=== PATIENT | female | born 1990 | race Caucasian/White ===

== ENCOUNTER → 2021-09-22 | Outpatient (CLI) | payer BC, OTHER ==
[~2021-09-22] MED LIST: ALBU90OI INH; AMOX500 PO; AZIT250 PO; Bactrim Ds Tab1 EACH PO; CEPH500 PO; CIPR500 PO; Ferrous Sulfat325 M2 PO; HYDACE5 PO; IBUP600 PO; IBUP800 PO; IRON325 MG PO; MEDR150I IM; MULVITMINE PO; ONDA4ODT MM; OXYACE5T PO; PHENA100 PO; Prednisone10 MG PO; Prednisone20 MG PO; Pyridium100 MG PO; RXALBOI INH; RXHYDACE PO; RXOXYACE PO; Triamcinolone A15 GM TOP; Verotin-Gr Cap1 EACH PO
== END | disposition home or self-care (01) ==
LOC: LAB 18:31 → LAB SHORT 18:31
DX: N39.0 Urinary tract infection, site not specified (principal)
CPT/HCPCS: 87077; 87086; 87186

== ENCOUNTER → 2022-09-12 | Outpatient (CLI) | payer BC, OTHER | END | disposition home or self-care (01) | LOC: LAB 16:42 → LAB SHORT 16:42 | DX: N39.0 Urinary tract infection, site not specified (principal) | CPT/HCPCS: 87086 ==

== ENCOUNTER 2023-03-29 06:13 | Day surgery (SDC) | payer BC, OTHER ==
[2023-03-29] VITALS (17 sets, daily range): BP systolic 102–135; BP diastolic 66–93
[~2023-03-29] VITALS: Ht 162.6 cm; Wt 74.3 kg
[2023-03-29] MEDS ORDERED: Lactated Ringer's 1,000 ML IV SCH ×2 (06:30→11:05)
[2023-03-29] MEDS ORDERED: CeFAZolin Sodium 2,000 MG in NS 50 ML IV SCH ×2 (06:30→14:15)
[2023-03-29] MEDS ORDERED: DHEA 10 MG TAB1 EACH PO (06:55)
[2023-03-29] MEDS ORDERED: LEVSOD25 PO (06:56)
[2023-03-29] MEDS ORDERED: FEROSUL325 M1 PO (06:56)
[2023-03-29] MEDS ORDERED: LIOT50 PO (06:57)
[2023-03-29] MEDS ORDERED: VITAMIN D325 MC3 PO (06:58)
[2023-03-29] MEDS ORDERED: Lidocaine HCl 2% 20 ML MDV ONE (07:25)
[2023-03-29] MEDS ORDERED: propofoL 20 ML IV ONE (07:26)
[2023-03-29] MEDS ORDERED: FentaNYL Citrate 50 MCG/ML 5 ML Injection ONE (07:26)
[2023-03-29] MEDS ORDERED: Rocuronium Bromide 10 MG/ML 5ML Injection IV ONE (07:26)
[2023-03-29 07:31] LABS: BASOPHILS ABSOLUTE AUTO 0.03 K/mm3 (0.00-0.23); BASOPHILS PERCENT AUTO 0 % (0-2); EOSINOPHILS ABSOLUTE AUTO 0.11 K/mm3 (0.00-0.68); EOSINOPHILS PERCENT AUTO 1 % (0-6); Hematocrit 37.5 % (33.0-51.0); Hemoglobin 12.7 g/dL (11.5-16.0); IMMATURE GRAN ABSOLUTE AUTO 0.02 K/mm3 (0.00-0.10); IMMATURE GRAN PERCENT AUTO 0 % (0-1); LYMPHOCYTES ABSOLUTE AUTO 1.38 K/mm3 (0.84-5.20); LYMPHOCYTES PERCENT AUTO 16 % (21-46); MONOCYTES ABSOLUTE AUTO 0.47 K/mm3 (0.16-1.47); MONOCYTES PERCENT AUTO 6 % (4-13); Mean Corpuscular HGB 29.8 pg (26.0-34.0); Mean Corpuscular HGB Conc 33.9 g/dL (31.5-36.5); Mean Corpuscular Volume 88 fL (80-100); Mean Platelet Volume 9.6 fL (9.1-12.4); NEUTROPHILS PERCENT AUTO 76 % (41-73); Platelet Count 318 K/mm3 (150-400); RDW Coefficient Variation 12.2 % (11.7-14.2); RDW Standard Deviation 39.4 fL (35.1-46.3); Red Blood Cell Count 4.26 M/mm3 (3.80-5.20); White Blood Cell Count 8.41 K/mm3 (4.00-11.30)
[2023-03-29] MEDS ORDERED: Bupivacaine 0.5% HCl 5 MG/ML 30MLVIAL ONE (07:46)
[2023-03-29] MEDS ORDERED: Dexamethasone Sod Phos 10 MG/ML 1ML VIAL ONE (08:21)
[2023-03-29] MEDS ORDERED: Metoprolol Tartrate 5 ML IV ONE (08:30)
[2023-03-29] MEDS ORDERED: Sugammadex Sodium 200 MG/2ML SDV (100 MG/ML) ONE (09:14)
[2023-03-29] MEDS ORDERED: Ondansetron HCl 2 MG / ML 2ML Vial ONE (09:14)
[2023-03-29] MEDS ORDERED: FentaNYL Citrate 50 MCG/ML 2 ML Injection ONE ×2 (09:32→11:08)
[2023-03-29] MEDS ORDERED: Promethazine HCl 25 MG Tab PO PRN (11:00)
[2023-03-29] MEDS ORDERED: HYDROmorphone HCl/Pf 1MG SYR IV PRN (11:05)
[2023-03-29] MEDS ORDERED: FLU VACC QS2023-24(6MOS UP)/PF 60 MCG/0.5 ML SYRINGE IM SCH (11:05)
[2023-03-29] MEDS ORDERED: Simethicone 80 MG Chew PO PRN (11:05)
[2023-03-29] MEDS ORDERED: OxyCODONE 5 mg/Acetamin 325 mg TABLET PO PRN (11:05)
[2023-03-29] MEDS ORDERED: Ondansetron HCl 2 MG / ML 2ML Vial IV PRN (11:05)
[2023-03-29] MEDS ORDERED: Naloxone HCl 0.4MG / ML 1ML Vial IV PRN (11:05)
[2023-03-29] MEDS ORDERED: Ondansetron 4 MG TAB PO PRN (11:10)
[2023-03-29] MEDS ORDERED: Promethazine HCl 12.5 MG Supp PR PRN (11:10)
[2023-03-29] MEDS ORDERED: Ketorolac Tromethamine 30mg Vial IV SCH (12:00)
--- NOTE | 2023-03-29 12:10 | NUR ---
PT ARRIVED TO THE ROOM AT APPROXIMATELY 1135. PT DROWSY BUT AWAKES WHEN SPOKEN TO, PT IS ORIENTED WHEN AWAKE. PT COMPLAINS OF 7/10 PAIN BUT APPEARS COMFORTABLE WITHOUT GRIMACING AND MOANING WHEN LEFT AT REST. PT GIVEN TORADOL FOR PAIN. PT REPORTS SENSITIVITY TO ADVIL, SHE REPORTS STOMACH UPSET/GERD WHEN TAKING ADVIL, PT STATED OK TO TRY TORADOL. PREV KIDNEY FUNCTION WNL. PT EDUCATED TO USE CALL LIGHT. PT REPORTED MILD NAUSEA.
[2023-03-29] MEDS ORDERED: NS 250 ML IV PRN (12:25)
--- NOTE | 2023-03-29 18:04 | NUR ---
SHIFT SUMMARY PT IS POD#0 FROM [facility] TOTAL LAP HYSTER WITH DR. GRISSOM. PAIN MANAGED WITH PO PAIN MEDICATION. PT HAD DISCOMFORT FROM BANKS CATHETER, CATHETER REMOVED. PT CONTINUING TO HAVE URINARY URGENCY/FREQUENCY BUT BLADDER DISCOMFORT HAS IMPROVED SINCE CATHETER REMOVED. BLADDER SCAN WAS APPROXIMATELY 132ML AND PT WAS ABLE TO VOID AFTER THAT BLADDER SCAN. PT'S URINE IS DARK, IV FLUIDS STARTED. PT DENIES PASSING FLATUS SINCE SURGERY. PT HAS AMBULATED IN THE ROOM. PT IS TOLERATING SMALL AMOUNTS OF PO BUT REPORTED INCREASED DISCOMFORT AFTER EATING EARLIER; PT EDUCATED TO ONLY EAT IF SHE IS HUNGRY. PT USES HER CALL LIGHT APPROPRIATELY. PT HAS BEEN INDEPENDENT IN THE ROOM.
[2023-03-30 04:09] VITALS: BP 103/72
[2023-03-30 04:21] LABS: BASOPHILS ABSOLUTE AUTO 0.02 K/mm3 (0.00-0.23); BASOPHILS PERCENT AUTO 0 % (0-2); EOSINOPHILS ABSOLUTE AUTO 0.08 K/mm3 (0.00-0.68); EOSINOPHILS PERCENT AUTO 1 % (0-6); Hematocrit 31.7 % (33.0-51.0); Hemoglobin 10.6 g/dL (11.5-16.0); IMMATURE GRAN ABSOLUTE AUTO 0.03 K/mm3 (0.00-0.10); IMMATURE GRAN PERCENT AUTO 0 % (0-1); LYMPHOCYTES ABSOLUTE AUTO 1.99 K/mm3 (0.84-5.20); LYMPHOCYTES PERCENT AUTO 23 % (21-46); MONOCYTES ABSOLUTE AUTO 0.74 K/mm3 (0.16-1.47); MONOCYTES PERCENT AUTO 9 % (4-13); Mean Corpuscular HGB 29.6 pg (26.0-34.0); Mean Corpuscular HGB Conc 33.4 g/dL (31.5-36.5); Mean Corpuscular Volume 89 fL (80-100); Mean Platelet Volume 9.7 fL (9.1-12.4); NEUTROPHILS ABSOLUTE AUTO 5.85 K/mm3 (1.96-9.15); NEUTROPHILS PERCENT AUTO 67 % (41-73); Platelet Count 270 K/mm3 (150-400); RDW Coefficient Variation 11.9 % (11.7-14.2); RDW Standard Deviation 38.6 fL (35.1-46.3); Red Blood Cell Count 3.58 M/mm3 (3.80-5.20); White Blood Cell Count 8.71 K/mm3 (4.00-11.30)
--- NOTE | 2023-03-30 05:19 | NUR ---
SHIFT SUMMARY POD 1 LAP HYSTERECTOMY PT ABLE TO REST DURING THE NIGHT. PAIN MANAGED PER EMAR. TOLERATING PO INTAKE. VOIDING. SCANT AMOUNT OF VAGINAL BLEEDING. X4 LAP SITES CLOSED WITH GLUE, C/D/I. VSS. PLAN TO D/C TODAY, NO OTHER CONCERNS AT THIS TIME. CALL LIGHT WITHIN REACH
[2023-03-30] MEDS ORDERED: Levothyroxine Sodium 0.025 MG Tab PO SCH (06:00)
[2023-03-30 07:19] VITALS: BP 114/76
[2023-03-30] MEDS ORDERED: Cholecalciferol 1000 Unit Tablet (=25MCG) PO SCH (09:00)
[2023-03-30] MEDS ORDERED: PRASTERONE CALCIUM CARB PO SCH (09:00)
[2023-03-30] MEDS ORDERED: Percocet 5-3251 EACH PO (09:53)
[2023-03-30] MEDS ORDERED: SIME80CH PO (09:54)
--- NOTE | 2023-03-30 12:05 | NUR ---
DC SUMMARY PT POD #1 FOR LAP HYSTER. LAP SITES CDI WITH WOUND GLUE. PT IND IN ROOM AND TOLERATING PO INTAKE. PT IS PASSING GAS AND PAIN CONTROLLED WITH ORAL PAIN MEDICATION. ABD BINDER IN PLACE. PT DC'D HOME.
== END 2023-03-30 12:10 | disposition home or self-care (01) ==
LOC: ORSCMMR 06:13 → SURS 06:13 → ORSCMMR 06:14 → ORD 08:00 → ORSCMMR 08:00 → SURS 11:24 → ORSCMMR 03-30 12:10
PROVIDERS: Obstetrics & Gynecology
PROC: 0U5F4ZZ Destruction of Cul-de-sac, Percutaneous Endoscopic Approach (ICD-10-PCS; principal; 2023-03-29 08:00)
PROC: 0UT9FZZ Resection of Uterus, Via Natural or Artificial Opening With Percutaneous Endoscopic Assistance (ICD-10-PCS; principal; 2023-03-29 08:00)
DX: N92.0 Excessive and frequent menstruation with regular cycle (principal); N94.6 Dysmenorrhea, unspecified; N94.10 Unspecified dyspareunia; R10.2 Pelvic and perineal pain; N72 Inflammatory disease of cervix uteri; N80.03 Adenomyosis of the uterus; N80.329 Endometriosis of the posterior cul-de-sac, unspecified depth; E03.9 Hypothyroidism, unspecified; F41.9 Anxiety disorder, unspecified; Z79.899 Other long term (current) drug therapy
CPT/HCPCS: 36415; 85025; 86850; 86900; 86901; 88305; 88307; 94760; A9270; J0690; J1100; J1170; J1885; J2405; J2704; J3010; J7050; J7120